=== PATIENT | male | born 1975 | race Caucasian/White ===

== ENCOUNTER → 2021-03-20 | Outpatient (CLI) | payer BC ==
[~2021-03-20] MED LIST: DOCU-109 PO; HYDR-2761 PO; MELO15TA23 PO; METH-562 PO; PANT40TA77 PO
[2021-03-20 15:41] LABS: BASO % 0 % (0-3); EOS % 0 % (0-3); HEMATOCRIT 46.4 % (39.0-53.0); HEMOGLOBIN 15.4 g/dL (13.0-17.5); LYMPH # 1.1 x10^3/uL (1.0-4.8); LYMPH % 11 % (24-48); MEAN CORPUSCULAR HEMOGLOBIN 31 pg (25-35); MEAN CORPUSCULAR HGB CONC 33 g/dL (31-37); MEAN CORPUSCULAR VOLUME 92 fL (79-100); MONO # 0.4 x10^3/uL (0.0-1.1); MONO % 4 % (0-9); NEUT # 8.5 x10^3/uL (1.8-7.7); NEUT % 85 % (31-73); PLATELET COUNT 186 x10^3/uL (140-400); RED BLOOD COUNT 5.05 x10^6/uL (4.30-5.70); RED CELL DISTRIBUTION WIDTH 12.4 % (11.5-14.5); WHITE BLOOD COUNT 10.1 x10^3/uL (4.0-11.0)
[2021-03-20 16:31] LABS: ALBUMIN 4.1 g/dL (3.4-5.0); CALCIUM 9.3 mg/dL (8.5-10.1); GFR 81.6; POTASSIUM 4.8 mmol/L (3.5-5.1); TOTAL BILIRUBIN 0.3 mg/dL (0.2-1.0); TOTAL PROTEIN 8.2 g/dL (6.4-8.2)
== END ==
LOC: SURGPAT 14:38
PROVIDERS: ATTEND Neurological Surgery
DX: Z01.812 Encounter for preprocedural laboratory examination (principal); Z20.822 Contact with and (suspected) exposure to COVID-19; M51.17 Intervertebral disc disorders with radiculopathy, lumbosacral region
CPT/HCPCS: 36415; 80053; 85025; 87641

== ENCOUNTER 2021-04-05 10:26 | Day surgery (SDC) | payer BC ==
[2021-03-27 16:30] VITALS: BP 155/79
--- NOTE | 2021-04-04 18:28 | PREOP HP ---
DATE OF SERVICE: 04/05/2021 PREOPERATIVE HISTORY AND PHYSICAL HISTORY OF PRESENT ILLNESS: The patient is a pleasant 45-year-old man who is having difficulty with low back pain. The pain radiates to his left posterior thigh and leg. He has numbness in his toes on the left side. He has had problems for years, but it has been much worse over the last year, especially the last several weeks. Chiropractic treatment was done and he says it did give him some relief. Walking and standing increases his pain. His pain is decreased by sitting and by using ice. He said meloxicam helps him. He had 2 rounds of physical therapy, once 3 months ago and once also in 2019. He has had chiropractic treatment. CURRENT MEDICATIONS: Meloxicam. PAST MEDICAL HISTORY: Has been verified. PAST SURGICAL HISTORY: Denies previous surgery. FAMILY HISTORY: Noncontributory. SOCIAL HISTORY: Employed in [employer]. . Nonsmoker. Does not drink alcohol. ALLERGIES: No known drug allergies. REVIEW OF SYSTEMS: A 12-point review of systems was performed and is noncontributory except that mentioned above. PHYSICAL EXAMINATION: GENERAL: Alert, pleasant, in no acute distress. HEENT: Head is normocephalic, atraumatic. SKIN: Warm and dry. MUSCULOSKELETAL: Lumbar paraspinal muscle bulk is normal, restricted range of motion of the lumbar spine, [id number] tenderness of the lower lumbar spine with palpation, normal range of motion of the lower extremities bilaterally. EXTREMITIES: No clubbing, cyanosis or edema. NEUROLOGIC: Alert and oriented x 3. Normal recent and remote memory. Strength is 5/5 in the lower extremities bilaterally. Sensory was intact to light touch in the lower extremities bilaterally, except for decreased sensation in the lateral aspect of his left foot. Reflexes were present and symmetric in the lower extremities bilaterally. Positive straight leg raising on the left with back and left buttock pain, relieved by Lasegue's maneuver. Negative straight leg raising on the right. Normal gait. IMAGING: I reviewed a lumbar MRI scan from 02/23/2020. On that study, the abnormalities are seen at L5-S1. There is a left focal foraminal disk protrusion and left foraminal stenosis. There is narrowing of the left lateral recess with mass effect on the left S1 root. ASSESSMENT AND PLAN: He has a herniated disk at L5-S1 on the left and left lumbar radiculopathy. He has failed conservative measures. I spoke with him about treatments. My feeling is that he should move forward with lumbar microdiskectomy at L5-S1. He understands the surgery and the risk and the expected postoperative course. He would like to proceed. DAVID DR: Damien TID: [id number]
[~2021-04-05] VITALS: Ht 185.4 cm; Wt 93.1 kg
[~2021-04-05 10:26] MED LIST changes: +DEXAMETHASONE SOD PHOS 4 MG/ML VIAL ONE; -DOCU-109 PO; +HYDROmorphone 2 MG/ML INJ. IVP PRN; +IV RINGERS,LACTATED 1000ML 1,000 ML IV SCH; +LIDOCAINE 2% PF 5 ML VIAL. ONE; -METH-562 PO; +MIDAZOLAM HCL/PF 2 MG/2 ML VIAL. ONE; +MORPHINE SULFATE 2 MG/ML INJ. IVP PRN; +ONDANSETRON PF 4 MG/2 ML VIAL. ONE; +PHENYLEPHRINE 10 MG/ML VIAL. ONE; +PHENYLEPHRINE in 0.9% NACL PF 1 MG/10 ML SYRINGE. IV ONE; +PROCHLORPERAZINE 10 MG/2 ML VIAL. IVP PRN; +PROPOFOL 10 MG/ML (20ML) VIAL. IV ONE; +PROPOFOL 50 ML IV ONE; +REMIFENTANIL 2 MG VIAL. IV ONE; +ROCURONIUM 50 MG/5 ML VIAL. ONE; +SUCCINYLCHOLINE 200 MG/10 ML VIAL. ONE; +ceFAZolin SODIUM 1 GM in IV NORMAL SALINE 1000ML BAG 1,000 ML IRR ONE; +fentaNYL PF VIAL 100 MCG/2 ML VIAL IVP PRN; +fentaNYL PF VIAL 100 MCG/2 ML VIAL ONE
[2021-04-05] MEDS ORDERED: THROMBIN TOPICAL 20,000 UNIT SPRAY.SYRN KIT TP ONE (10:28)
[2021-04-05] MEDS ORDERED: BUPIVACAINE-EPI 0.5% 30 ML VIAL KIT. ONE (10:28)
[2021-04-05] MEDS ORDERED: GELATIN SPONGE SIZE 100. ONE (10:28)
[2021-04-05] MEDS ORDERED: KETOROLAC 60 MG/2 ML VIAL. ONE (10:28)
[2021-04-05] MEDS ORDERED: ePHEDrine PF IN SALINE 50 MG/10 ML SYRINGE. IV ONE (11:08)
[2021-04-05] MEDS ORDERED: PROPOFOL 50 ML IV ONE (11:08)
[2021-04-05] MEDS ORDERED: REMIFENTANIL 1 MG VIAL. IV ONE (11:30)
[2021-04-05] MEDS ORDERED: 0.9 % SODIUM CHLORIDE 20 ML VIAL. IJ ONE (11:31)
[2021-04-05] MEDS ORDERED: HYDROmorphone 2 MG/ML INJ. ONE (11:36)
[2021-04-05] MEDS ORDERED: NEOSTIGMINE METHYLSULFATE 5 MG/5 ML SYRINGE. ONE (12:09)
[2021-04-05] MEDS ORDERED: DOCU-109 PO (14:21)
[2021-04-05] MEDS ORDERED: METH-562 PO (14:22)
--- NOTE | 2021-04-05 14:24 | DISCH ---
DISCHARGE INSTRUCTIONS Condition on Discharge Condition on Discharge: Stable Activity After Discharge Activity Instructions for Disc: Activity as tolerated, Avoid exertion Other activity instructions: no driving for a week Bathing Instructions: Shower-keep dressing dry, No Tub Bath until see Lifting Instructions after Dis: No heavy lifting, No pulling or pushing, Do not lift >10 pounds Diet after Discharge Additional Diet Restrictions: resume home diet Wound Incision Care Wound/Incision Care: Ice to area for comfort Other wound/incision instructi: may remove dressing in 48 hours if dry then may shower, no soaking Contacting the after DC Call your doctor for: Concerns you may have Follow-Up Follow up with: Dr. Doyle's nurse in 2 weeks [phone] ADI DOYLE MD Apr 05, 2021 14:24
--- NOTE | 2021-04-05 14:36 | OP ---
DATE OF SURGERY: 04/05/2021 PREOPERATIVE DIAGNOSIS: Herniated lumbar disc, L5-S1 on the left with left lumbar radiculopathy. POSTOPERATIVE DIAGNOSIS: Herniated lumbar disc, L5-S1 on the left with left lumbar radiculopathy. OPERATION PERFORMED: Hemilaminotomy and microdiscectomy L5-S1 on the left. The operation was done with EMG monitoring, SSEP monitoring, fluoroscopy, microscopic dissection. SURGEON: Mendel Tavera M.D. MANAGER MARK[employer] DEVELOPMENT: Tkii Blankenship APRN; assisted with exposure, the microdiscectomy as well as the closure. OPERATIVE INDICATIONS: The patient is a pleasant 45-year-old who developed problems with intractable back and left leg pain, which failed conservative measures. On imaging studies, there is a focal disc herniation, which was central and left sided at L5-S1 on the left and I recommended lumbar microsurgery. I spoke with him about the surgery, the risks, technique and expected postoperative course, and he wished to go ahead. DESCRIPTION OF PROCEDURE: Following general endotracheal anesthesia, the patient was positioned prone on the Baldemar table. Lumbar region prepped and draped in standard fashion. CHRIST hose and AV impulse boots were applied for DVT prophylaxis. The microscope was draped, fluoroscopy was draped and brought into the field. Monitoring was established. Ancef 2 grams given less than one hour prior to initiation of the surgery. Using fluoroscopic guidance, a decision was made directly over the L5-S1 interspace. I dissected down through skin and subcutaneous tissue, reflected the paraspinal muscles and placed a microdisk retractor and brought in the high speed air drill in the microscope. I then burred down a generous hemilaminotomy. I trimmed away ligamentum flavum and followed the S1 root laterally and exposed and created a partial foraminotomy. The root was lifted by a large subligamentous disc herniation. I gently retracted the disc medially and incised the ligament and annulus and performed a very generous discectomy. As I worked, multiple disc fragments were removed and the nerve root moved in a more normal position. I entered the disc space and performed a generous discectomy within the disc space and I felt that I had an excellent decompression. I irrigated copiously with antibiotic solution. Hemostasis was excellent throughout the operation. I removed the retractor, obtained hemostasis in the muscle and closed the wound in layers with absorbable suture after further irrigation. The skin was closed with 4-0 subcuticular stitch. I felt the surgery went very well. JENNY/KHOA DR: Lidia TID: [id number] MTDD
[2021-04-05] MEDS ORDERED: HYDROcodone/APAP 5/325MG 1 TAB TABLET PO ONE (15:00)
[2021-04-05] MEDS ORDERED: fentaNYL PF VIAL 100 MCG/2 ML VIAL ONE (15:13)
[2021-04-05 15:15] VITALS: BP 114/63
[2021-04-05] MEDS: fentaNYL PF VIAL 100 MCG/2 ML VIAL IVP PRN ×2 (15:18→15:45)
--- NOTE | 2021-04-07 16:09 | PATHOLOGY ---
[facility] [place] Accession Number: [id number] . 01 Material submitted: . vertebral column - LUMBAR DISC AND DECOMPRESSION . 01 Clinical history: . LUMBAR HERNIATED DISC AND RADICULOPATHY LUMBAR MICRODISCECTOMY L5-S1 . 02 Diagnosis: Segments of fibrocartilaginous tissue and minute segments of bone, lumbar disc and decompression: - Degenerative changes of fibrocartilaginous tissue. (JPM:marisa; 04/07/2021) . S 04/07/2021 1230 Local . 02 Comment: There is no evidence of an acute inflammatory process or malignancy. (JPM:marisa; 04/07/2021) . 02 Electronically signed: . Zach Holt MD, Pathologist NPI- [id number] . 01 Gross description: . The specimen is received in formalin, labeled "Dinh Barnes, lumbar disc and decompression". Received are multiple segments of pale wharton to pink-wharton fibrous tissue admixed with fragments of gritty bone measuring 3.0 x 2.5 x 0.8 cm in aggregate dimensions. The specimen is submitted representatively in cassette A1, following light decalcification. ([facility]; 04/06/2021) NRI/NRI 04/06/20212027 Local . 02 Pathologist provided ICD-10: M51.36 . 02 CPT . 006786, [id number] Specimen Comment: A courtesy copy of this report has been sent to [phone], [phone] Specimen Comment: [id number] Specimen Comment: Report sent to / DR VAUGHN Specimen Comment: A duplicate report has been generated due to demographic updates. Performed at: [address], [place], [place] [id number] MD Ramos Reid MD Phone: [phone] Performed at: [address] [id number] MD Zach Holt MD Phone: [phone]
== END 2021-04-05 16:18 | disposition home or self-care (01) ==
LOC: SURG 10:26
PROVIDERS: ATTEND Neurological Surgery
DX: M51.16 Intervertebral disc disorders with radiculopathy, lumbar region (principal); Z79.899 Other long term (current) drug therapy; Z98.890 Other specified postprocedural states; Z72.89 Other problems related to lifestyle
CPT/HCPCS: 63030; 88304; 88311; 97116; 97162; 97530; A4213; A4364; A4556; A4930; A6254; A6258; J0330; J0690; J1100; J1170; J1885; J2250; J2370; J2405; J2704; J2710; J3010; J3490; J7030; 76000; A4222; A4223